=== PATIENT | male | born 1945 | race Caucasian/White ===

== ENCOUNTER → 2023-09-27 10:05 | Outpatient (CLI) | payer MEDICARE, OTHER, SELFPAY ==
--- NOTE | 2023-09-27 10:12 | DI.NM.S_ITS ---
PROCEDURE: NM KEVIN PERF SPECT REST & STR Rest and exercise myocardial perfusion SPECT with gated imaging and ejection fraction RADIOPHARMACEUTICAL: 12.5 mCi Tc-99m sestamibi IV at rest and 26.3 mCi Tc-99m sestamibi IV at peak exercise. A [id number] was performed. 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 SPECT images were obtained. SPECT myocardial perfusion images were displayed in short axis, horizontal long axis, and vertical long axis views. Gated images were reviewed using [employer] software. COMPARISON: None. CARDIAC STRESS: A standard Shawn treadmill exercise tolerance test was performed by the patient under the supervision of an attending staff. The patient exercised for 6 minutes and 1 seconds; 6.9 METS; functional aerobic impairment (ANASTACIO) is -9%. Hemodynamic data: There is blood pressure and heart rate response to exercise stress. Patient achieved 106% of maximum predicted heart rate at peak exercise. Maximum blood pressure 168/88. Symptoms: Patient denied chest pain during exercise. EKG: Rest ECG sinus rhythm. Exercise ECG sinus tachycardia 2 mm horizontal to downsloping ST segment depression leads II, III, aVF, V4-V6. FINDINGS: Raw data: There is good myocardial labeling by radiotracer. No significant motion artifacts. Qucs-qt-bmwqt ratio is 0.23 (normal is less than 0.38 for sestamibi tracer, and less than 0.50 for thallium tracer). Left ventricle function: Gated images demonstrate normal left ventricle wall thickening. No segmental wall motion abnormality. No transient ischemic dilation; TID is 0.9 (normal less than 1.3). The left ventricle resting end-diastolic volume is 120 mL. Left ventricle stress ejection fraction is 74%; normal values are above 45%. Myocardial perfusion: There is normal distribution of activity in the left and right ventricular myocardium. No fixed or reversible perfusion defects. IMPRESSION: Low risk study. No evidence of exercise-induced ischemia or scar on SPECT imaging. Top normal LV size with normal function. False positive exercise ECG. Normal hemodynamic response. Good exercise capacity. Dictated by: Dorita Sofia D.O. on 09/27/2023 at 16:36 Approved by: Dorita Sofia D.O. on 09/27/2023 at 16:43
== END ==
PROVIDERS: PCP Registered Nurse; Referring Provider Internal Medicine Cardiovascular Disease; Visit Provider Internal Medicine Cardiovascular Disease
DX: R53.83 Other fatigue (principal); I35.0 Nonrheumatic aortic (valve) stenosis; I25.10 Atherosclerotic heart disease of native coronary artery without angina pectoris; T82.09XD Other mechanical complication of heart valve prosthesis, subsequent encounter; Z95.1 Presence of aortocoronary bypass graft
CPT/HCPCS: 78452; 93017; A9502

== ENCOUNTER → 2023-11-13 11:19 | Outpatient (CLI) | payer MEDICARE, OTHER, SELFPAY ==
--- NOTE | 2023-11-13 11:21 | DI.RAD.S_ITS ---
PROCEDURE: FL JOINT INJECTION MEDIUM LT INDICATIONS: Primary osteoarthritis, left shoulder COMPARISON: None. TECHNIQUE: The indications, alternatives, benefits, risks, and complications of the procedure were explained to the patient. Written informed consent was obtained and placed in the chart. The patient was placed in an appropriate position on the fluoroscopy table, and a site was chosen for percutaneous access under fluoroscopic guidance. The site was prepped and draped in a sterile fashion. Local anesthetic was administered using a 1% lidocaine solution. A hypodermic or spinal needle was then used to access the symptomatic joint. Intra-articular location of the needle tip was confirmed by injecting a small amount of contrast, followed by steroid administration. The needle was then withdrawn, and a bandage applied to the puncture site. FINDINGS: Joint injected: Left shoulder Medications injected: 4 mL of 40 mg/mL Kenalog and 0.5% Ropivacaine mixture. Patient's pain before injection: 3 out of 10. Patient's pain after injection: 0 out of 10. Complications: None. IMPRESSION: Successful fluoroscopically guided administration of steroid and anaesthetic solution into the left shoulder joint. Dictated by: Bob Quinn M.D. on 11/13/2023 at 13:11 Approved by: Bob Quinn M.D. on 11/13/2023 at 13:12
[2023-11-13] MEDS: LIDOCAINE 1% 20 ML INJ (12:31)
[2023-11-13] MEDS: ROPIVACAINE 0.5% PF 5 MG/ML 20ML VIAL 3 ML INJ (12:31)
[2023-11-13] MEDS: TRIAMCINOLONE 40 MG/ML VIAL INTRA-ARTI (12:32)
== END ==
PROVIDERS: PCP Registered Nurse; Referring Provider Physician Assistant Surgical; Visit Provider Physician Assistant Surgical
DX: M19.012 Primary osteoarthritis, left shoulder (principal)
CPT/HCPCS: 20605; 20610; 77002; Q9967

== ENCOUNTER → 2024-01-03 11:01 | Outpatient (CLI) | payer MEDICARE, OTHER, SELFPAY ==
--- NOTE | 2024-01-03 11:02 | DI.RAD.S_ITS ---
PROCEDURE: FL JOINT INJECTION LARGE RT INDICATIONS: Unilateral primary osteoarthritis, right hip COMPARISON: [facility], [place], [place] JOINT INJECTION LARGE LT, 11/13/2023, 10:56. TECHNIQUE: The indications, alternatives, benefits, risks, and complications of the procedure were explained to the patient. Written informed consent was obtained and placed in the chart. The patient was placed in an appropriate position on the fluoroscopy table, and a site was chosen for percutaneous access under fluoroscopic guidance. The site was prepped and draped in a sterile fashion. Local anesthetic was administered using a 1% lidocaine solution. A hypodermic or spinal needle was then used to access the symptomatic joint. Intra-articular location of the needle tip was confirmed by injecting a small amount of contrast, followed by steroid administration. The needle was then withdrawn, and a bandage applied to the puncture site. FINDINGS: Joint injected: Right hip Medications injected: For mL of 40 mg/mL Kenalog and 0.5% Ropivacaine mixture. Patient's pain before injection: 5 out of 10. Patient's pain after injection: 1 out of 10. Complications: None. IMPRESSION: Successful fluoroscopically guided administration of steroid and anaesthetic solution into the right hip joint. Dictated by: Scarlett Carrillo M.D. on 01/03/2024 at 15:45 Approved by: Scarlett Carrillo M.D. on 01/03/2024 at 15:46
[2024-01-03] MEDS: LIDOCAINE 1% 20 ML INJ (12:37)
[2024-01-03] MEDS: ROPIVACAINE 0.5% PF 5 MG/ML 20ML VIAL 20 ML INJ (12:38)
[2024-01-03] MEDS: TRIAMCINOLONE 40 MG/ML VIAL INTRA-ARTI (12:39)
== END ==
PROVIDERS: PCP Registered Nurse; Referring Provider Physician Assistant Surgical; Visit Provider Physician Assistant Surgical
DX: M16.11 Unilateral primary osteoarthritis, right hip (principal)
CPT/HCPCS: 20610; 77002; Q9967

== ENCOUNTER → 2024-03-27 10:10 | Outpatient (CLI) | payer MEDICARE, OTHER, SELFPAY ==
--- NOTE | 2024-03-27 10:12 | DI.RAD.S_ITS ---
PROCEDURE: FL JOINT INJECTION LARGE LT INDICATIONS: DJD COMPARISON: [facility], [place], [place] JOINT INJECTION LARGE RT, 01/03/2024, 10:21. TECHNIQUE: The indications, alternatives, benefits, risks, and complications of the procedure were explained to the patient. Written informed consent was obtained and placed in the chart. The patient was placed in an appropriate position on the fluoroscopy table, and a site was chosen for percutaneous access under fluoroscopic guidance. The site was prepped and draped in a sterile fashion. Local anesthetic was administered using a 1% lidocaine solution. A hypodermic or spinal needle was then used to access the symptomatic joint. Intra-articular location of the needle tip was confirmed by injecting a small amount of contrast, followed by steroid administration. The needle was then withdrawn, and a bandage applied to the puncture site. FINDINGS: Joint injected: Left shoulder Medications injected: 4 mL of 40 mg/mL Kenalog and 0.5% Ropivacaine mixture. Patient's pain before injection: 5 out of 10. Patient's pain after injection: 3 out of 10. Complications: None. IMPRESSION: Successful fluoroscopically guided administration of steroid and anaesthetic solution into the left shoulder joint. Dictated by: Tabby Malhotra M.D. on 03/27/2024 at 12:37 Approved by: Tabby Malhotra M.D. on 03/27/2024 at 12:38
[2024-03-27] MEDS: ROPIVACAINE 0.5% PF 5 MG/ML 20ML VIAL 20 ML INJ (10:37)
[2024-03-27] MEDS: TRIAMCINOLONE 40 MG/ML VIAL INTRA-ARTI (10:38)
[2024-03-27] MEDS: LIDOCAINE 1% 20 ML INJ (11:03)
== END ==
LOC: RAD 10:11
PROVIDERS: PCP Registered Nurse; Referring Provider Physician Assistant Surgical; Visit Provider Physician Assistant Surgical
DX: M19.012 Primary osteoarthritis, left shoulder (principal)
CPT/HCPCS: 20610; 77002; A9579; Q9967

== ENCOUNTER → 2024-05-01 09:42 | Outpatient (CLI) | payer MEDICARE, OTHER, SELFPAY ==
--- NOTE | 2024-05-01 09:44 | DI.RAD.S_ITS ---
PROCEDURE: FL JOINT INJECTION LARGE RT INDICATIONS: DEGENERATIVE JOINT DISEASE RIGHT HIP COMPARISON: [facility], [place], [place] JOINT INJECTION LARGE LT, 03/27/2024, 9:29. TECHNIQUE: The indications, alternatives, benefits, risks, and complications of the procedure were explained to the patient. Written informed consent was obtained and placed in the chart. The patient was placed in an appropriate position on the fluoroscopy table, and a site was chosen for percutaneous access under fluoroscopic guidance. The site was prepped and draped in a sterile fashion. Local anesthetic was administered using a 1% lidocaine solution. A hypodermic or spinal needle was then used to access the symptomatic joint. Intra-articular location of the needle tip was confirmed by injecting a small amount of contrast, followed by steroid administration. The needle was then withdrawn, and a bandage applied to the puncture site. FINDINGS: Joint injected: Right hip Medications injected: 3mL of 40 mg/mL Kenalog and 0.5% Ropivacaine mixture. Patient's pain before injection: 6-7 out of 10. Patient's pain after injection: 2-3 out of 10. Complications: None. IMPRESSION: Successful fluoroscopically guided administration of steroid and anaesthetic solution into the RIGHT HIP joint. Dictated by: Donell Rider M.D. on 05/01/2024 at 13:50 Approved by: Donell Rider M.D. on 05/01/2024 at 13:52
[2024-05-01] MEDS: LIDOCAINE 1% 20 ML INJ (10:46)
[2024-05-01] MEDS: TRIAMCINOLONE 40 MG/ML VIAL INTRA-ARTI (10:47)
[2024-05-01] MEDS: ROPIVACAINE 0.5% PF 5 MG/ML 20ML VIAL 20 ML INJ (10:47)
== END ==
PROVIDERS: PCP Registered Nurse; Referring Provider Physician Assistant Surgical; Visit Provider Physician Assistant Surgical
DX: M16.11 Unilateral primary osteoarthritis, right hip (principal)
CPT/HCPCS: 20610; 77002; Q9967